=== PATIENT | male | born 1960 | race Two or more races ===

== ENCOUNTER → 2020-10-13 | Outpatient (CLI) | payer OTHER ==
--- NOTE | 2020-10-15 08:41 | SLEEP ---
DATE OF STUDY: 10/13/2020 SLEEP STUDY ATTENDING PHYSICIAN: Jeannette Pickard MD. The patient is 59 years old who weighs 210 pounds with a BMI of 29. The patient's [place] score was 12. The patient underwent split night study, performed at [facility]. During the night study, the patient spent 427 minutes in bed and slept for 320 minutes with a sleep efficiency of 75%. Sleep latency was 29 minutes with a REM latency of 178 minutes. Sleep architecture showed increased stage 1 and stage 2 sleep, normal slow wave and normal REM sleep. During the initial diagnostic portion of the study, the patient slept for 84 minutes. The patient had 73 obstructive apneas, 4 mixed and no central apneas, and 22 hypopneas. The patient's AHI was 74 per hour. REM sleep was not seen. Supine AHI was 71 per hour. No PLMs seen. EKG monitoring revealed no arrhythmias. Average heart rate 56 beats per minute. Nocturnal oximetry study revealed an average oxygen saturation of 95% with a lowest of 79%. A 12% of time oxygen saturation remained between 80% and 89%. The patient was started on CPAP and titrated up to 11 cm water. At the final pressure, the patient slept for 77 minutes. The patient's AHI was reduced to 4 per hour and oxygen saturations remained above 93%. The patient had lateral REM sleep. IMPRESSION: 1. Severe obstructive sleep apnea at an AHI of 71 per hour. 2. Nocturnal hypoxia, secondary to obstructive sleep apnea, but resolved with CPAP. 3. No PLMs observed. RECOMMENDATIONS: 1. CPAP at 11 cm water completely eliminated the patient's sleep apnea and should be used on a nightly basis. 2. Follow up in 4-6 weeks to assess compliance and to document clinical improvement. 3. Weight loss is advised. 4. 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 5. Cautioned regarding driving until symptoms of sleep apnea resolved with the use of CPAP. HIRA SUNSHINE MD DR: LUIS FERNANDO/derek JOB#: [id number] / [id number] JEANNETTE Mayo MD
== END ==
LOC: SLPLAB 19:14
PROVIDERS: ATTEND Family Medicine
DX: G47.33 Obstructive sleep apnea (adult) (pediatric) (principal)
CPT/HCPCS: 95810; 95811